=== PATIENT | female | born 1960 | race African-American/Black ===

== ENCOUNTER 2017-07-11 12:06 | Day surgery (SDC) | payer BC ==
[2017-07-11] MEDS ORDERED: Ringers Lactate 1,000 ML IV ONE (12:27)
[2017-07-11] MEDS ORDERED: CEFAZOLIN/SWI 1gm 1 GM/10 ML SYR ONE (12:27)
[2017-07-11] MEDS ORDERED: LIDOCAINE 2% MPF 5 ML VIAL ONE ×2 (14:21→14:38)
[2017-07-11] MEDS ORDERED: Mastisol Adhesive Liq ONE (14:22)
[2017-07-11] MEDS ORDERED: DEXAMETHASONE 4 MG/ML VIAL ONE (14:22)
[2017-07-11] MEDS ORDERED: BUPIVACAINE 0.5% PF 10 ML VIAL ONE (14:22)
[2017-07-11] MEDS ORDERED: MIDAZOLAM HCL 2 MG/2 ML INJ ONE (14:37)
[2017-07-11] MEDS ORDERED: PROPOFOL 200 MG/20 ML VIAL IV ONE (14:37)
[2017-07-11] MEDS ORDERED: FENTANYL CITR 250 MCG/5 ML ONE (14:38)
[2017-07-11] MEDS ORDERED: KETOROLAC 30 MG/ML INJ ONE (15:50)
[2017-07-11] MEDS ORDERED: MEPERIDINE HCL 25 MG/0.5 ML ONE (16:56)
--- NOTE | 2017-07-11 19:50 | RAD REPORT ---
EXAM DESCRIPTION: RAD - Foot Right 2 View - 07/11/2017 7:04 pm CLINICAL HISTORY: Right foot surgery FINDINGS: Multiple fluoroscopic spot images are submitted. A screw was removed from the first metata rsal. The procedure was performed by Dr. Jose Refer to his report for additional findings
== END 2017-07-11 17:50 | disposition home or self-care (01) ==
LOC: OR 12:06
PROVIDERS: ATTEND Podiatrist Foot & Ankle Surgery
PROC: 0QPN04Z Removal of Internal Fixation Device from Right Metatarsal, Open Approach (ICD-10-PCS; principal; 2017-07-11 13:00)
DX: Z47.2 Encounter for removal of internal fixation device (principal); I10 Essential (primary) hypertension
CPT/HCPCS: J0690; J2175; J2250